=== PATIENT | female | born 1980 | race African-American/Black ===

== ENCOUNTER 2018-12-01 21:51 | Emergency (ER) | payer SELFPAY ==
[~2018-12-01] VITALS: Ht 157.5 cm; Wt 117.9 kg
[2018-12-01 23:19] VITALS: BP 161/93
[2018-12-02] MEDS ORDERED: cefTRIAXone SOD 1,000 MG VL IM ONE
[2018-12-02] MEDS ORDERED: BENZOCAINE (DENTAL) 20 % SPRAY 60ML MT ONE
[2018-12-02] MEDS ORDERED: ACETAMINOPHEN/CODEINE#3 (300/30mg) TAB PO ONE
[2018-12-02] MEDS ORDERED: methylPREDNISolone SOD SUCC 125 MG/2 ML VL IM ONE
== END 2018-12-02 00:56 | disposition home or self-care (01) ==
LOC: ER 21:57
DX: K04.7 Periapical abscess without sinus (principal)
CPT/HCPCS: 96372

== ENCOUNTER 2019-02-13 18:25 | Emergency (ER) | payer MEDICAID ==
[~2019-02-13] VITALS: Ht 160 cm; Wt 108.9 kg
[2019-02-13 18:32] VITALS: BP 128/93
[2019-02-13] MEDS ORDERED: methylPREDNISolone SOD SUCC 125 MG/2 ML VL IV ONE (20:30)
[2019-02-13] MEDS ORDERED: ACETAMINOPHEN/CODEINE#3 (300/30mg) TAB PO ONE (20:30)
== END 2019-02-13 21:08 | disposition home or self-care (01) ==
LOC: ER 18:27
DX: K08.89 Other specified disorders of teeth and supporting structures (principal)
CPT/HCPCS: 96374; 99283; J2930